=== PATIENT | female | born 1965 | race Two or more races ===

== ENCOUNTER 2023-12-15 08:04 | Outpatient (RCR) | payer MEDICAID, SELFPAY ==
--- NOTE | 2023-12-15 08:55 | PT.ODAYNRPT ---
PT Outpatient Daily Note OP Daily Note Outpatient Physical Therapy Treatment Date: 12/15/23 Visit Reasons: back pain Subjective: Pt reports low back is doing better feels she can move with more ease. Objective: Please see flow sheet for ther ex list. Assessment: Pt demonstrates good tolerance with progression of sore strengthening interventions. Plan: Continue with POC. Length of Time (minutes) of Treatment: 30 Minutes Procedure Charges Therapeutic Exercise 30 minutes: Yes
== END 2024-01-09 23:59 | disposition home or self-care (01) ==
LOC: CPTX 08:04
PROVIDERS: PCP Nurse Practitioner Family; Referring Provider Nurse Practitioner Family; Visit Provider Nurse Practitioner Family
DX: M54.50 Low back pain, unspecified (principal); G89.29 Other chronic pain; R26.2 Difficulty in walking, not elsewhere classified
CPT/HCPCS: 97110

== ENCOUNTER → 2024-01-11 | Outpatient (CLI) | payer MEDICAID, SELFPAY ==
--- NOTE | 2024-01-11 08:45 | XR_ITS ---
Examination: Abdomen sonogram, complete Date and time of exam: January 11, 2024 0912 hours INDICATIONS: Soreness in the abdomen one month with elevated liver function tests on laboratory examination this month. Technique: Multiple real-time grayscale transabdominal sonographic images of the abdomen have been obtained. Findings: Absent gallbladder Normal common bile duct 0.4 cm Pancreatic head 1.8 cm Aorta not enlarged Liver 12.2 cm fatty infiltration smooth contour no focal liver lesions Normal hepatopedal portal venous flow Patent IVC Right kidney 9.3 x 4.2 x 5.3 cm cortex 1.5 cm Left kidney 9.8 x 4.4 x 4.5 cm renal cortex 1.4 cm Moderate bilateral renal parenchymal scar formation Mild left hydronephrosis Spleen 8.0 cm IMPRESSION: Moderate bilateral renal parenchymal scar formation Mild left hydronephrosis, consider CT scan abdomen pelvis without contrast follow-up to assess etiology of the hydronephrosis
== END | disposition home or self-care (01) ==
PROVIDERS: PCP Nurse Practitioner Family; Referring Provider Nurse Practitioner Family; Visit Provider Nurse Practitioner Family
DX: N28.89 Other specified disorders of kidney and ureter (principal); N13.30 Unspecified hydronephrosis
CPT/HCPCS: 76700

== ENCOUNTER → 2024-03-03 | Outpatient (CLI) | payer MEDICAID, SELFPAY ==
--- NOTE | 2024-03-03 07:30 | XR_ITS ---
Examination: CT abdomen and pelvis without contrast. Coronal 3-D reconstructions. Sagittal 2-D reconstructions. Date and time of exam:March 02, 2024 0749 hours INDICATIONS: Abdomen sonogram 2023 left hydronephrosis CTDI: vol (mGy): 6.12 DLP: (mGycm): 289 Technique: Axial images of the abdomen have been obtained, 3 mm slice thickness Intravenous contrast material has not been administered. Low dose protocols were performed. One or more of the following dose reduction techniques were used; automated exposure control, adjustment of the mA and/or KV according to patient size, use of iterative reconstruction technique. Findings: No focal liver or splenic lesions Absent gallbladder No pancreatic mass Mild left hydronephrosis No renal or ureteral calculi. Aorta normal size No bowel obstruction No pericecal inflammatory change No bladder mass or bladder calculi Moderate osteopenia Anteverted uterus no pelvic mass IMPRESSION: Mild left hydronephrosis, no renal or ureteral calculi, consider urinary tract infection
== END | disposition home or self-care (01) ==
LOC: CCTX 07:11
PROVIDERS: PCP Nurse Practitioner Family; Referring Provider Nurse Practitioner Family; Visit Provider Nurse Practitioner Family
DX: N13.30 Unspecified hydronephrosis (principal)
CPT/HCPCS: 74176

== ENCOUNTER → 2024-09-01 | Outpatient (BNVA) | payer MEDICAID, SELFPAY | END | disposition home or self-care (01) | PROVIDERS: PCP Nurse Practitioner Family; Referring Provider Nurse Practitioner Family; Visit Provider Urology | DX: N81.10 Cystocele, unspecified (principal); Z87.440 Personal history of urinary (tract) infections | CPT/HCPCS: 81003; 99212; G0463 ==